=== PATIENT | male | born 1980 | race Caucasian/White ===

== ENCOUNTER 2016-10-10 06:56 | Day surgery (SDC) | payer BC ==
--- NOTE | 2016-10-10 08:28 | Operative Note ---
Upper GI Endoscopy Procedure date: 10/10/16 Date of : 80 Procedure:Upper GI Endoscopy Esophagogastroduodenoscopy with cold biopsies and TTS balloon dilation Indications: Mr. Kinney is a 36-year-old gentleman who has had progressive dysphagia over the last several months. This occurs primarily with solid foods. He does have some occasional heartburn and reports some globus sensation with phlegm in the throat. Often he has to vomit or regurgitate to achieve relief of his symptoms. He reports no abdominal pain, dyspepsia, indigestion or odynophagia. He did have a barium swallow with upper gastrointestinal series in April 2016 which was unremarkable. He also had a CT scan of the chest in April that showed a very small 6 mm RIGHT middle lobe lung nodule but was otherwise normal. His CT of the abdomen and pelvis in March 2014 showed some thickened distal esophagus consistent with esophagitis. He also had a fatty liver on that exam. Performing Provider: Berto Rodriguez MD Referring Provider: Mj Jaquez M.D. Sedation: Fentanyl 200 mg IV/Versed 9 mg IV Procedure: Prior to the procedure, a history and physical exam was performed, and patients medications and allergies were reviewed. The risks and benefits of the procedure and the sedation options and risks were discussed with the patient. All questions were answered and informed consent was obtained. The patient was brought to the procedure room. Patient identification and proposed procedure were verified by the physician and the nurse. The patient was placed in a left lateral decubitus position and the scope was passed under direct vision. Throughout the procedure, the patient's blood pressure, pulse, and oxygen saturations were monitored continuously. The endoscope was introduced through the mouth, and advanced to the second part of duodenum. The upper GI endoscopy was accomplished without difficulty. The patient tolerated the procedure well. Findings: The scope was passed directly into the upper esophagus and advanced to the third portion of the duodenum. The post bulbar duodenum and duodenal bulb were normal with normal mucosa and conniventes. The scope was withdrawn through a normal duodenal bulb and pylorus into the stomach. There was very mild linear reactive antritis with linear erythema of the antrum. Some bile reflux. The remainder of the antrum, body and fundus of the stomach were grossly normal. Upon retroflexion there was no hiatal hernia. 2 biopsies were taken in the antrum and along the lesser curvature for histology. The scope was then withdrawn into the esophagus. There was corrugation and linear striations with furrowing of the esophageal mucosa consistent with eosinophilic esophagitis. Multiple biopsies were obtained. The esophagus was gently dilated to 19 mm/57 [place] with a TTS hydrostatic balloon. Immediate complications: None EBL (ml): 0 Impression: 1. Esophageal mucosal corrugation and furrowing consistent with eosinophilic esophagitis status post dilation to 19 mm Recommendations: I will follow up the biopsies. I'm going to place the patient on omeprazole and fluticasone spray for 3 months. I will obtain RAST food ALLERGY testing. We will discuss 6 food elimination diet at 0850
[2016-10-10 14:13] VITALS: BP 140/88
[2016-10-13 12:37] LABS: F001-IgE Egg White 2.42 kU/L (Class III); F002-IgE Milk <0.10 kU/L (Class 0); F003-IgE Codfish <0.10 kU/L (Class 0); F004-IgE Wheat 1.94 kU/L (Class III); F010-IgE Sesame Seed <0.10 kU/L (Class 0); F013-IgE Peanut <0.10 kU/L (Class 0); F014-IgE Soybean <0.10 kU/L (Class 0); F024-IgE Shrimp <0.10 kU/L (Class 0); F256-IgE Walnut <0.10 kU/L (Class 0); F338-IgE Scallop <0.10 kU/L (Class 0)
== END 2016-10-10 09:35 | disposition home or self-care (01) ==
LOC: SDC 06:56
PROVIDERS: Internal Medicine Gastroenterology
PROC: 0D738ZZ Dilation of Lower Esophagus, Via Natural or Artificial Opening Endoscopic (ICD-10-PCS; 2016-10-10)
PROC: 0DB78ZX Excision of Stomach, Pylorus, Via Natural or Artificial Opening Endoscopic, Diagnostic (ICD-10-PCS; principal; 2016-10-10 08:00)
DX: K20.0 Eosinophilic esophagitis (principal); R13.10 Dysphagia, unspecified; R12 Heartburn; K76.0 Fatty (change of) liver, not elsewhere classified
CPT/HCPCS: C1726